=== PATIENT | male | born 1955 | race Caucasian/White ===

== ENCOUNTER 2017-02-20 09:42 | Emergency (ER) | payer MEDICAID, OTHER ==
[2017-02-20] MEDS ORDERED: Ketorolac 60 MG/2 ML SDV IM ONE (10:15)
--- NOTE | 2017-02-20 10:17 | EDM.PDOC ---
ED HPI GENERAL MEDICAL PROBLEM - General Chief Complaint: Lower Extremity Injury/Pain Stated Complaint: RIGHT KNEE PAIN Time Seen by Provider: 02/20/17 10:09 Source of Information: Reports: Patient, RN Notes Reviewed History Limitations: Reports: No Limitations - History of Present Illness INITIAL COMMENTS - FREE TEXT/NARRATIVE: 61-year-old gentleman presents emergency department today with complaint of right knee pain, he injured himself while he was getting into his truck denies any specific twisting injury hurt a pop while getting into his truck now is experiencing severe pain, pain is so intense he cannot ambulate cannot bear weight RIGHT;KNEE Pain Score (Numeric/FACES): 6 - Related Data Allergies Allergy/AdvReac Type Severity Reaction Status Date / Time No Known Allergies Allergy Verified 02/20/17 09:59 Home Meds: Home Meds NK [No Known Home Meds] 02/20/17 [History] Past Medical History HEENT History: Reports: Impaired Vision Gastrointestinal History: Reports: GERD Musculoskeletal History: Reports: Back Pain, Chronic - Infectious Disease History Infectious Disease History: Reports: Chicken Pox - Past Surgical History HEENT Surgical History: Reports: LASIK, Tonsillectomy Male Surgical History: Reports: Renal Calculus Musculoskeletal Surgical History: Reports: Other (See Below) Other Musculoskeletal Surgeries/Procedures:: LAMINECTOMY, WRIST AND ARM SURGERY Social & Family History - Tobacco Use Smoking Status *Q: Never Smoker - Caffeine Use Caffeine Use: Reports: Coffee, Energy Drinks - Recreational Drug Use Recreational Drug Use: No Review of Systems - Review of Systems Review Of Systems: See Below Musculoskeletal: Reports: Joint Pain (Right knee) Skin: Reports: No Symptoms Neurological: Reports: No Symptoms ED EXAM, GENERAL - Physical Exam Exam: See Below Free Text/Narrative:: Examination of the right knee I don't appreciate any erythema there is no edema there is no tenderness to palpation with movement of the patella no tenderness along the joint line the medial or lateral he is tender on the posterior aspect of the thigh superior to the knee can do dorsiflexion and plantarflexion without difficulty pedal pulse is +2 Exam Limited By: No Limitations General Appearance: Alert, WD/WN, No Apparent Distress Course - Vital Signs Last Recorded V/S: Last Vital Signs Temp 96 F 02/20/17 10:06 Pulse 66 02/20/17 10:06 Resp 18 02/20/17 10:06 BP 145/75 H 02/20/17 10:06 Pulse Ox 96 02/20/17 10:06 - Orders/Labs/Meds Meds: Medications Discontinued Medications Generic Name Dose Route Start Last Admin Trade Name Agustin PRN Reason Stop Dose Admin Ketorolac Tromethamine 60 mg 02/20/17 10:15 02/20/17 10:20 Toradol IM 02/20/17 10:16 60 mg ONETIME ONE Administration Departure - Departure Time of Disposition: 12:07 Disposition: Home, Self-Care 01 Condition: Good Clinical Impression: Right knee pain Qualifiers: Chronicity: acute Qualified Code(s): M25.561 - Pain in right knee - Discharge Information Referrals: PCP,None [Primary Care Provider] - Forms: ED Department Discharge Additional Instructions: Use hydrocodone as needed for pain control please follow[facility] with [facility] tomorrow - Assessment/Plan Plan: Assessment Acuity = acute Site and laterality = right knee pain Etiology = unclear etiology Manifestations = difficulty with ambulation Location of injury = Home Lab values = x-ray shows no acute process Plan He had some relief from the Toradol injection plan is discharge home with hydrocodone for pain control total #10 tablets 1 tab by mouth 3 times a day when necessary, he is placed in the immobilizer will follow up with his [place] physician tomorrow for further evaluation Patient was in agreement with the plan all questions were answered, they were instructed to return to the emergency department or call for worsening symptoms. This note was dictated using [employer] voice recognition software please call with any questions.
--- NOTE | 2017-02-20 11:54 | CR ---
Knee 3V Rt INDICATION: pain COMPARISON: None FINDINGS: 3 views. No fracture, dislocation, or other acute bony abnormality. Mild degenerative a nd hypertrophic change. Possible postop change at the anterior tibial tuberosity.
== END 2017-02-20 12:40 | disposition home or self-care (01) ==
LOC: JP.ED 09:42
DX: M25.561 Pain in right knee (principal); V58.4XXA Person boarding or alighting a pick-up truck or van injured in noncollision transport accident, initial encounter
CPT/HCPCS: 73562; 96372; 99284; J1885; 99283

== ENCOUNTER 2022-08-21 09:05 | Emergency (ER) | payer OTHER, MEDICARE | END 2022-08-21 10:44 | disposition home or self-care (01) | LOC: JP.ED 09:05 | DX: R04.0 Epistaxis (principal); J30.9 Allergic rhinitis, unspecified; I10 Essential (primary) hypertension; Z79.899 Other long term (current) drug therapy | CPT/HCPCS: 99283 ==